=== PATIENT | female | born 2000 | race Caucasian/White ===

== ENCOUNTER 2023-08-27 18:12 | Outpatient (CLI) | payer OTHER | END 2023-08-27 18:13 | disposition home or self-care (01) | LOC: LAB.N 18:12 | PROVIDERS: ATTEND Obstetrics & Gynecology | DX: Z34.90 Encounter for supervision of normal pregnancy, unspecified, unspecified trimester (principal) | CPT/HCPCS: 87086 ==

== ENCOUNTER 2023-09-01 14:46 | Outpatient (CLI) | payer OTHER ==
--- NOTE | 2023-09-02 08:45 | Ultrasound Report ---
PROCEDURE: OB First Trimester INDICATIONS: POSITIVE TEST OUTSIDE/PRIOR DATING DATA: Last menstrual period (LMP): 06/25/2023. LMP-based estimated date of delivery (CANDY): 03/31/2024. First dating scan (date and location): 09/01/2023. Estimated date of delivery (CANDY) from first dating scan: 04/02/2024. TECHNIQUE: Real-time scanning was performed of the fetus and maternal pelvic organs, with image documentation. COMPARISON: None. FINDINGS: Intrauterine gestational sac present. Embryo: Aten-rump length of 2.6 cm corresponding to a gestational age of 9 weeks 3 days Heart rate: 171 bpm. Other: No perigestational fluid collection. Measurement variability in dating: +/- 4 weeks by LMP, +/- 7 days by mean sac diameter (use before 6 weeks gestation if crown-rump length not able to be measured), +/- 5 days by crown-rump length (6-12 weeks gestation). Maternal organs: Ovaries appear within normal limits. IMPRESSION: Single living intrauterine with gestational age of 9 weeks 3 days by crown-rump length halley esponding to an ultrasound CANDY of 04/02/2024, concordant with clinical dates. Reviewed by: Enrique Vasquez MD on 09/02/2023 8:44 AM PDT Approved by: Enrique Vasquez MD on 09/02/2023 8:44 AM PDT Station ID: [id number]
== END 2023-09-01 14:47 | disposition home or self-care (01) ==
LOC: DI 14:46
PROVIDERS: ATTEND Obstetrics & Gynecology
DX: Z34.91 Encounter for supervision of normal pregnancy, unspecified, first trimester (principal)

== ENCOUNTER 2023-09-17 08:00 | Outpatient (CLI) | payer OTHER ==
[2023-09-17 19:53] LABS: CHLAMYDIA TRACHOMATIS DNA NEGATIVE (NEGATIVE); NEISSERIA GONORRHOEAE DNA NEGATIVE (NEGATIVE); TRICHOMONAS VAGINALIS DNA NEGATIVE (NEGATIVE)
== END 2023-09-17 23:59 | disposition home or self-care (01) ==
LOC: LAB.WC 08:00
PROVIDERS: ATTEND Obstetrics & Gynecology
DX: Z11.3 Encounter for screening for infections with a predominantly sexual mode of transmission (principal)
CPT/HCPCS: 87491; 87591; 87661

== ENCOUNTER 2023-09-17 10:44 | Outpatient (CLI) | payer OTHER ==
[2023-09-17 11:18] LABS: BASOPHILS # (AUTO) 0.1 10^3/uL (0.0-0.1); BASOPHILS % (AUTO) 0.5 %; EOSINOPHILS # (AUTO) 0.1 10^3/uL (0.0-0.7); EOSINOPHILS % (AUTO) 0.5 %; HCT - HEMATOCRIT 41.6 % (37.0-47.0); HGB - HEMOGLOBIN 14.5 g/dL (12.0-16.0); LYMPHOCYTES # (AUTO) 1.4 10^3/uL (1.5-3.5); LYMPHOCYTES % (AUTO) 14.2 %; MEAN CORPUSCULAR HEMOGLOBIN 30.8 pg (27.0-31.0); MEAN CORPUSCULAR HGB CONC 34.9 g/dL (32.0-36.0); MEAN CORPUSCULAR VOLUME 88.3 fL (81.0-99.0); MONOCYTES # (AUTO) 0.3 10^3/uL (0.0-1.0); NEUTROPHILS # (AUTO) 7.9 10^3/uL (1.5-6.6); NEUTROPHILS % (AUTO) 81.5 %; PLT - PLATELET COUNT 176 10^3/uL (130-450); RED BLOOD COUNT 4.71 10^6/uL (4.20-5.40); RED CELL DISTRIBUTION WIDTH 12.3 % (12.0-15.0); WHITE BLOOD COUNT 9.7 x10^3/uL (4.8-10.8)
[2023-09-17 11:32] LABS: CREATININE 0.5 mg/dL (0.6-1.3)
[2023-09-17 11:46] LABS: THYROID STIMULATING HORMONE 0.34 uIU/mL (0.34-5.60)
[2023-09-18 06:10] LABS: RPR Non Reactive (Non Reactive)
[2023-09-18 07:10] LABS: HBsAG SCREEN Negative (Negative)
[2023-09-18 11:10] LABS: VARICELLA-ZOSTER AB IGG 708 index (Immune >165)
[2023-09-19 01:08] LABS: HCV AB Non Reactive (Non Reactive); HIV SCREEN 4TH GENERATION Non Reactive (Non Reactive)
== END 2023-09-17 10:45 | disposition home or self-care (01) ==
LOC: LAB 10:44
PROVIDERS: ATTEND Obstetrics & Gynecology
DX: O99.210 Obesity complicating pregnancy, unspecified trimester (principal); E66.9 Obesity, unspecified
CPT/HCPCS: 36415; 82565; 82570; 84156; 84443; 84450; 85025; 86592; 86762; 86787; 86803; 86850; 86900; 86901; 87340; 87389; 87491; 87591; 87661

== ENCOUNTER 2023-11-06 14:18 | Outpatient (CLI) | payer OTHER ==
[2023-11-06 14:38] LABS: BILIRUBIN,URINE NEGATIVE (NEGATIVE); GLUCOSE, URINE (UA) NEGATIVE (NEGATIVE); KETONES,URINE (UA) NEGATIVE (NEGATIVE); LEUKOCYTE ESTERASE, URINE TRACE (NEGATIVE); NITRITE,URINE NEGATIVE (NEGATIVE); OCCULT BLOOD,URINE NEGATIVE (NEGATIVE); PH,URINE 6.5 PH (5.0-7.5); PROTEIN,URINE TRACE mg/dL (NEGATIVE); UROBILINOGEN,URINE 0.2 (NORMAL) E.U./dL (NORMAL)
[2023-11-06 14:44] LABS: BACTERIA,URINE Moderate /HPF (None Seen); CLARITY,URINE SL. CLOUDY (CLEAR); MUCUS,URINE Marked Strands; RBC,URINE 0-5 /HPF (0-5); SQUAMOUS EPITHELIAL CELL,UR MANY Squamous (<= Few); WBC,URINE 0-3 /HPF (0-5)
[2023-11-06 14:48] LABS: CREATININE,URINE 248.1 mg/dL; PROTEIN/CREATININE RATIO,URINE 0.1 (<=0.2)
[2023-11-06 14:54] LABS: ALBUMIN 4.1 g/dL (3.2-5.5); ALBUMIN/GLOBULIN RATIO 1.6 (1.0-2.2); BILIRUBIN,TOTAL 0.4 mg/dL (0.2-1.0); CALCIUM 9.4 mg/dL (8.5-10.3); CREATININE 0.5 mg/dL (0.6-1.3); POTASSIUM 3.7 mmol/L (3.5-4.5); TOTAL PROTEIN 6.7 g/dL (6.4-8.9)
[2023-11-06 15:09] LABS: THYROID STIMULATING HORMONE 0.41 uIU/mL (0.34-5.60)
[2023-11-07 06:46] LABS: ESTIMATED AVERAGE GLUCOSE 94 mg/dL (70-100); HEMOGLOBIN A1c% 4.9 % (4.27-6.07)
== END 2023-11-06 14:19 | disposition home or self-care (01) ==
LOC: LAB 14:18
PROVIDERS: ATTEND Nurse Practitioner
DX: R42 Dizziness and giddiness (principal)
CPT/HCPCS: 36415; 80053; 81001; 82570; 83036; 84156; 84443; 87086

== ENCOUNTER 2023-11-12 12:03 | Outpatient (CLI) | payer OTHER ==
[2023-11-18 10:07] LABS: AFP MOM See interpretation. (.); AFP VALUE 34.3 ng/mL (.); GESTAT. AGE METHOD EDD (.); MATERNAL AGE AT EDD 25.4 yr (.); MULTIPLE GESTATION No (.); OPEN SPINA BIFIDA RISK 1 IN See interpretation. (.); RACE Caucasian (.); RESULTS Report (.); TEST RESULTS See interpretation. (.)
== END 2023-11-12 12:04 | disposition home or self-care (01) ==
LOC: LAB.N 12:03
PROVIDERS: ATTEND Obstetrics & Gynecology
DX: Z34.90 Encounter for supervision of normal pregnancy, unspecified, unspecified trimester (principal)
CPT/HCPCS: 36415; 82105

== ENCOUNTER 2023-11-13 16:08 | Outpatient (CLI) | payer OTHER ==
--- NOTE | 2023-11-14 14:45 | Ultrasound Report ---
PROCEDURE: OB Detailed Eval INDICATIONS: SUPERVISION OF OUTSIDE/PRIOR DATING DATA: Last menstrual period (LMP): 06/25/2023. LMP-based estimated date of delivery (CANDY): 03/31/2024. First dating scan (date and location): 04/02/2023. Estimated date of delivery (CANDY) from first dating scan: 08/28/2023. The below data below was generated using the working CANDY of 04/02/2023 TECHNIQUE: Ultrasound of the gravid uterus was performed and recorded. COMPARISON: 09/01/2023 FINDINGS: General: A single live intrauterine gestation is present. Presentation: 11/13/2023 Placenta: Placental position is vertex without previa. Amniotic fluid index: 19.9 cm, 9.9 percentile for gestational age. heart rate: 145 beats per minute. Maternal cervical canal: 3.8 cm long; normal length is 2.5 cm or more. biometrics: Biparietal diameter: 4.4 cm, 19 week 3 day, 23 percentile Head circumference: 17.5 cm, 20 week 0 day, 35 percentile Abdominal circumference: 15.3 cm, 20 week 4 day, 57 percentile Femur length: 3.2 cm, 20 week 0 day, 38 percentile Estimated gestational age by working dates: 20 week 1 day Composite gestational age by current ultrasound: 19 week 6 day Estimated weight and percentile: 340 g, 50.2 percentile Measurement variability in biometric dating: +/- 10 days from 12-20 weeks gestation, +/- 2 weeks from 20-30 weeks gestation, +/- 3 weeks at 30 weeks gestation or more. Anatomic survey: Neuro: Ventricles are non-dilated at less than 10 mm. Cisterna magna is normal at 3-11 mm. Cerebel lum is normal in size and morphology. Nuchal skin fold: Normal at less than 6 mm between 14-20 weeks gestational age. Face: Not well seen Spine: Not well seen Heart: 4 chamber view within normal limits. Ventricular outflow tracts not well seen Diaphragm: Diaphragm is intact. Stomach: Left-sided stomach is present. Kidneys: No hydronephrosis. Normal is less than 5 mm in 2nd trimester, less than 7 mm in 3rd trimester. Cord: 3-vessel cord has orthotopic insertion. Bladder: Normal in size. Extremities: All 4 extremities identified. Other: Not applicable. IMPRESSION: Single live intrauterine consistent with 19 week 6 day gestation by current ultrasound Facial profile, spine, and cardiac outflow tracts not well visualized due to position Reviewed by: Abdelrahman Suarez MD on 11/14/2023 1:44 PM [facility] Approved by: Abdelrahman Suarez MD on 11/14/2023 1:44 PM [facility] Station ID: [id number]
== END 2023-11-13 16:09 | disposition home or self-care (01) ==
LOC: DI 16:08
PROVIDERS: ATTEND Obstetrics & Gynecology
DX: Z34.92 Encounter for supervision of normal pregnancy, unspecified, second trimester (principal)

== ENCOUNTER 2023-11-25 17:16 | Outpatient (CLI) | payer OTHER ==
--- NOTE | 2023-11-26 10:25 | Ultrasound Report ---
PROCEDURE: OB Follow up INDICATIONS: SUPERVISION OF OUTSIDE/PRIOR DATING DATA: Last menstrual period (LMP): 06/25/2023. LMP-based estimated date of delivery (CANDY): 03/31/2024. First dating scan (date and location): 09/01/2023. Estimated date of delivery (CANDY) from first dating scan: 04/02/2024. The below data below was generated using the clinical CANDY of 03/31/2024 TECHNIQUE: Real-time scanning was performed of the fetus, with image documentation. Endovaginal scanning: Not performed. COMPARISON: None. FINDINGS: General: A single living intrauterine gestation is present. Presentation: Vertex Placenta: Placental position is anterior, without previa. Amniotic fluid index: 11.7 cm, within normal limits for gestational age. heart rate: 135 beats per minute. Maternal cervical is closed. Other: profile is suboptimally visualized but appears grossly within normal limits. The spine, cardiac outflow tracts, stomach, kidneys and urinary bladder/pelvis are normal. IMPRESSION: Single living intrauterine at 21 weeks 6 days, CANDY of 03/31/2024. profile, spine and cardiac outflow tracts are within normal limits. Reviewed by: Da Greenwood MD on 11/26/2023 10:24 AM PST Approved by: Da Greenwood MD on 11/26/2023 10:24 AM PST Station ID: [id number]
== END 2023-11-25 17:17 | disposition home or self-care (01) ==
LOC: DI 17:16
PROVIDERS: ATTEND Obstetrics & Gynecology
DX: O09.92 Supervision of high risk pregnancy, unspecified, second trimester (principal); Z3A.21 21 weeks gestation of pregnancy

== ENCOUNTER 2024-01-20 19:12 | Outpatient (CLI) | payer OTHER ==
--- NOTE | 2024-01-21 09:12 | Ultrasound Report ---
PROCEDURE: OB Follow up INDICATIONS: LOW WEIGTH GAIN OUTSIDE/PRIOR DATING DATA: Last menstrual period (LMP): 06/25/2023. LMP-based estimated date of delivery (CANDY): 03/31/2024 (working CANDY). First dating scan (date and location): 09/01/2020. Estimated date of delivery (CANDY) from first dating scan: 04/02/2024. TECHNIQUE: Real-time scanning was performed of the fetus, with image documentation and biometric measurements. COMPARISON: 11/25/23, 11/13/2023, 09/01/2023 FINDINGS: General: A single living intrauterine gestation is present. Presentation: Vertex Placenta: Placental position is anterior, without previa. Amniotic fluid index: 10.7 cm, within normal limits for gestational age. heart rate: 131 beats per minute. biometrics: Biparietal diameter: 7.46 cm, 29 weeks and 6 days, 39.7 percentile Head circumference: 28.4 cm, 31 weeks and 1 day, 53.4 percentile Abdominal circumference: 25.08 cm, 29 weeks and 2 days, 27.7 percentile Femur length: 5.63 cm, 29 weeks and 4 days, 27.5 percentile Estimated gestational age from initial scan: 29 weeks and 6 days Composite gestational age from present scan: 30 weeks and 6 days Estimated weight and percentile: 1424 g, 28.8 percentile Measurement variability in biometric dating: +/- 10 days from 12-20 weeks gestation, +/- 2 weeks from 20-30 weeks gestation, +/- 3 weeks at 30 weeks gestation or more. This was a technically difficult exam due to position. IMPRESSION: Living intrauterine gestation. Normal FADI. EFW at the 28.8 percentile, expected interval growth. Technically difficult exam due to position. Reviewed by: Onel Barnes MD on 01/21/2024 9:11 AM PST Approved by: Onel Barnes MD on 01/21/2024 9:11 AM PST Station ID: [id number]
== END 2024-01-20 19:13 | disposition home or self-care (01) ==
LOC: DI 19:12
PROVIDERS: ATTEND Nurse Practitioner
DX: O09.93 Supervision of high risk pregnancy, unspecified, third trimester (principal); O21.9 Vomiting of pregnancy, unspecified; O99.213 Obesity complicating pregnancy, third trimester; O26.13 Low weight gain in pregnancy, third trimester; Z3A.30 30 weeks gestation of pregnancy

== ENCOUNTER 2024-01-21 11:07 | Outpatient (CLI) | payer OTHER ==
[2024-01-21 17:43] LABS: HCT - HEMATOCRIT 38.7 % (37.0-47.0); HGB - HEMOGLOBIN 12.6 g/dL (12.0-16.0); MEAN CORPUSCULAR HEMOGLOBIN 30.7 pg (27.0-31.0); MEAN CORPUSCULAR HGB CONC 32.6 g/dL (32.0-36.0); MEAN CORPUSCULAR VOLUME 94.2 fL (81.0-99.0); MEAN PLATELET VOLUME 13.3 fL (7.9-10.8); RED BLOOD COUNT 4.11 10^6/uL (4.20-5.40); RED CELL DISTRIBUTION WIDTH 13.4 % (12.0-15.0); WHITE BLOOD COUNT 9.9 x10^3/uL (4.8-10.8)
== END 2024-01-21 11:08 | disposition home or self-care (01) ==
LOC: LAB.N 11:07
PROVIDERS: ATTEND Obstetrics & Gynecology
DX: O09.92 Supervision of high risk pregnancy, unspecified, second trimester (principal); Z36.89 Encounter for other specified antenatal screening
CPT/HCPCS: 36415; 85027

== ENCOUNTER 2024-02-04 09:58 | Observation (INO) | payer OTHER ==
[2024-02-04] MEDS: ONDANSETRON 4 MG/2 ML VIAL IVP PRN (10:47)
[2024-02-04 11:03] LABS: ALBUMIN 3.7 g/dL (3.2-5.5); ALBUMIN/GLOBULIN RATIO 1.3 (1.0-2.2); BILIRUBIN,TOTAL 0.4 mg/dL (0.2-1.0); CALCIUM 9.2 mg/dL (8.5-10.3); CREATININE 0.5 mg/dL (0.6-1.3); MAGNESIUM 1.7 mg/dL (1.7-2.3); POTASSIUM 3.6 mmol/L (3.5-4.5); TOTAL PROTEIN 6.5 g/dL (6.4-8.9)
[2024-02-04] MEDS: MULTIVITAMIN 10 ML, THIAMINE INJ 100 MG, POTASSIUM CHLORIDE INJ 20 MEQ, FOLIC ACID INJ ... IV SCH (11:10)
[2024-02-04] MEDS: SCOPOLAMINE PATCH TOP PRN (15:21)
[2024-02-04 15:29] VITALS: BP 120/67; O2SAT 99
--- NOTE | 2024-02-04 22:04 | HISTORY & PHYSICAL EXAMINATION ---
Admit History - Visit Reason Visit Reason: Other (hyperemesis. exhausted. not able to keep down any food for days. just back from family trip to [place].) - Care: positive: [facility] - Other Maternal History Other Maternal History: really feeling miserable. has tried many medications and none are working for her to help her eat. Allergies Reviewed: Done * VICODIN (Moderate) Medications: Meds Reviewed: Done Pepcid AC 20 mg tablet (famotidine) Take 1 tablet by mouth twice a day * Electric Breast Pump Use 1 device as directed as directed USE TO EXPRESS MILK ACCORDING TO BABY'S NEEDS Z39.1 CANDY 03/31/2024 Lancets, Super Thin (lancets) Use 1 lancet as directed four times a day * Compazine 10 mg tablet (prochlorperazine maleate) Take 1 tablet by mouth every six to eight hours as needed for nausea Unisom (doxylamine) 25 mg tablet (doxylamine succinate) takes 1/2 tab prn nausea/sleep * PreNata 29 mg iron- 1 mg tablet,chewable ( [id number]) albuterol sulfate 90 mcg/actuation HFA aerosol inhaler (albuterol sulfate) use 2 puffs as needed for wheezing up to qid * pyridoxine (vitamin B6) 25 mg tablet (pyridoxine (vitamin b6)) tid prn nausea Ecotrin Low Strength 81 mg tablet,delayed release (DR/EC) (aspirin) 1 tablet by mouth once a day starting 12 wks for remainder of . Problems: Low weight gain in , unspecified trimester (ICD-646.83) (KCB07-R87.10) screening,other specified (ICD-V28.8) (SXJ77-D12.89) Near syncope (ICD-780.2) (HTX17-S23) Dizziness (ICD-780.4) (HDR46-U27) Supervision high risk , second trimester (ICD-V23.9) (FTF77-R40.92) Nausea and vomiting in (ICD-643.93) (AMX73-H03.9) Obesity, BMI 35-39.9, adult (ICD-278.00) (XBH08-I12.9) Past Medical History: Fibromyalgia Depression/anxiety hyperemesis with first . covid x 3 infections. with 1st vaccine she had left side of face not moving for a month. asthma mostly with URI or exercise. Past Surgical History: Tonsellectomy Knee surgery Vital Signs: Patient Profile: 23 Years Old Female Height: 71 inches Weight: 234.7 pounds BMI: 32.85 BP sittin / 68 Vitals Entered By: Mary Mendoza LPN (February 04, 2024 9:20 AM) Flowsheet View for Follow-up Visit Estimated weeks of gestation: 32 0/7 Weight: 234.7 Blood pressure: 122 / 68 Nausea/vomiting: vomtis any time she eats Vaginal bleeding: no Vaginal discharge: no activity: yes Labor symptoms: few ctx Comment: promethazine every day. metoclopramide with every meal 30 min before. heartburn medicine working well. just back from [place] vomiting every day there. really exhausted and miserable. feels like she is dehydrated and needs IVF. agrees to go to L&D for a liter iv. LMP: 06/25/23 CANDY by LMP: 03/31/24 US: 09/01/23 9+3 weeks CW LMP Final CANDY: 03/31/2024 FOB: Frederick. same as 1st 1. Hx preeclampsia -Compliant with aspirin BMI > 30 -counseled on weight Hyperemesis Multiple medications: Currently metoclopramide, b6 TID, unisom PM,added oral pr ochlorperazine. Has tried most options. . -profiling normal. Insufficient weight gain -EFW 01/20/2024: 1424 g, 29th percentile. Pre- Weight:258.4 BMI: 36.17 Blood type: O+ Antibody: negative CBC: PLT-176 HCT-41.6 HGB-14.5 RUB: immune VZV: immune HBsAg: negative HepC: negative RPR/AB-EIA: non-reactive HIV: negative PAP: Normal GC/CT: with pap 09/17/23- Negative HSV:Denies in self and partner Genetic testing: GaniTi 21 negative 11/12/2023 AFP negative Covid: declines; recvd Moderna in past Flu: declines FAS: 10/15 suboptimal visualization Placenta: vertex without previa Cord: 3VC FADI: normal EFW: 340g 50th %ile 1/2 follow up u/s profile suboptimal but grossly normal; all other structures normal. Declines repeat after discussion possibility of cleft lip/palate. 50gm OGCT: Profiling normal TDAP: 01/07/24 Breast Pump: 01/07/2024 3rd trimester H/H PLT GBS: Delivery plan: Contraception:desires sterilization Medications: Removed medication of True Metrix Glucose Meter (blood-glucose meter) Use 1 unit as directed four times a day to check blood sugar; Route: DIRECTED; Stop Date: 02/04/2024 - Signed Removed medication of True Metrix Glucose Test Strip strip (blood sugar diagnostic) Use 1 strip via meter four times a day ; Route: VIA METER; Stop Date: 02/04/2024 - Signed P: 1 T: 1 A: 0 L: 1 LMP: 06/25/2023 EDC: 03/31/2024 Height: 71 (01/21/2024 9:21:53 AM) Weight: 234.7 Weight (pre-): 258.4 (08/20/2023 1:18:54 PM) Gonnorhea: Neg (09/17/2023 2:26:21 PM) Chlamydia: Neg (09/17/2023 2:26:16 PM) Blood Type: O+ (09/17/2023 2:57:53 PM) Last Antibody Screen: negative (09/17/2023 2:57:59 PM) Is pt sexually active? yes Gonnorrhea: Neg (09/17/2023 2:26:21 PM) Chlamydia: Neg (09/17/2023 2:26:16 PM) HIV: negative (09/17/2023 2:58:33 PM) RPR: Non Reactive (09/17/2023 11:12:00 AM) Last Pap: Normal, Satisfactory (09/17/2023 2:26:02 PM) Next pap due: 09/17/2026 (09/24/2023 2:21:31 PM) Medications: Removed medication of True Metrix Glucose Meter (blood-glucose meter) Use 1 unit as directed four times a day to check blood sugar; Route: DIRECTED; Stop Date: 02/04/2024 - Signed Removed medication of True Metrix Glucose Test Strip strip (blood sugar diagnostic) Use 1 strip via meter four times a day ; Route: VIA METER; Stop Date: 02/04/2024 - Signed - HPI Vital Signs Temperature 97.9 F 02/04/24 10:24 Heart Rate 71 02/04/24 10:24 Respiratory Rate 16 02/04/24 10:24 Blood Pressure 111/65 02/04/24 10:24 O2 Saturation 100 02/04/24 10:24 Temperature 98.4 F 02/04/24 15:24 Heart Rate 63 02/04/24 15:24 Respiratory Rate 16 02/04/24 15:24 Blood Pressure 120/67 02/04/24 15:24 O2 Saturation 99 02/04/24 15:24 If not protocol: Oxygen Flow, liters/minute Meds/Allgy - Home Medications Home Medications: Ambulatory Orders Medication Instructions Recorded Confirmed Famotidine [Acid Sewing Machine Tester] 20 mg PO BID 02/04/24 02/04/24 Review of Systems - Constitutional Constitutional: reports: Fatigue, Poor appetite. denies: Fever - Cardiovascular Cariovascular: reports: Lightheadedness - Gastrointestinal Gastrointestinal: reports: Nausea, Vomiting, Reflux/heartburn (better with pepcid). denies: Jun blood emesis, Coffee grounds emesis Physical - Abdominal Exam Vital Signs: Temp Pulse Resp BP Pulse Ox O2 Flow Rate 98.4 F 63 16 120/67 99 02/04/24 15:24 02/04/24 15:24 02/04/24 15:24 02/04/24 15:24 02/04/24 15:24 Contraction Frequency (min/apart): none - Monitoring Heart Rate Baseline: 134 Strip Review: positive: Category I - Presentation Presentation: positive: Vertex - Vaginal Exam Membranes: positive: Membranes intact - Speculum Exam Speculum Exam Performed: positive: No - Other Notes Labor Progress Note/Additional Text: not in labor Plan for Labor - Plan For Labor I expect patient to be DC'd or transferred within 96 hours.: Yes Plan for Labor: admit for hyperemesis. will hydrate wtih a banana bag. try scope patch. let her rest quietly for a bit and see if she feels better. labs done and normal.
--- NOTE | 2024-02-04 22:14 | DISCHARGE SUMMARY ---
Discharge Summary Admit Date: 02/04/24 Discharge Date: 02/04/24 Discharging Provider: Pat Michaels MD Code Status: Attempt Resuscitation Condition at Discharge: Good Discharge Disposition: 01 Home, Self Care - DIAGNOSES Admission Diagnoses: hyperemesis. iv hydration Discharge Diagnoses with Status of Each Condition: still with some nausea but feels better with liter of fluid. - HPI History of Present Illness: really miserable and ready for some iv fluids. no meds she has at home are really working. - HOSPITAL COURSE Hospital Course: 1 liter iv fluid with vitamins given. IV zofran. placed a scope patch. NST reactive. discharged home after the fluid ran in. - MEDICATIONS Home Medications: Ambulatory Orders Medication Instructions Recorded Confirmed Famotidine [Acid Tc Operator] 20 mg PO BID 02/04/24 02/04/24 - PHYSICAL EXAM AT DISCHARGE General Appearance: positive: No acute distress - LABS Result Diagrams: 02/04/24 10:18 - TIME SPENT Time Spent in Discharge (Minutes): 10
== END 2024-02-04 15:57 | disposition home or self-care (01) ==
LOC: WFO 09:58 → FBP 09:58 → WFO 10:18
PROVIDERS: ADMIT Obstetrics & Gynecology; ATTEND Obstetrics & Gynecology
DX: O21.2 Late vomiting of pregnancy (principal); Z3A.32 32 weeks gestation of pregnancy; O99.213 Obesity complicating pregnancy, third trimester; O26.13 Low weight gain in pregnancy, third trimester; O99.613 Diseases of the digestive system complicating pregnancy, third trimester; K21.9 Gastro-esophageal reflux disease without esophagitis
CPT/HCPCS: 36415; 80053; 83735; 96374; 96375; G0378; J3411; J3490

== ENCOUNTER 2024-03-02 19:47 | Outpatient (CLI) | payer OTHER ==
--- NOTE | 2024-03-03 09:47 | Ultrasound Report ---
PROCEDURE: OB Follow up INDICATIONS: LOW WEIGHT GAIN OUTSIDE/PRIOR DATING DATA: Last menstrual period (LMP): 06/25/2023. LMP-based estimated date of delivery (CANDY): 03/31/2024. First dating scan (date and location): 09/01/2023. Estimated date of delivery (CANDY) from first dating scan: 04/02/2024. The below data below was generated using the clinical CANDY of 03/31/2024 TECHNIQUE: Real-time scanning was performed of the fetus, with image documentation and biometric measurements. Endovaginal scanning: Not performed. COMPARISON: OB ultrasound 01/20/2024 FINDINGS: General: A single living intrauterine gestation is present. Presentation: Vertex Placenta: Placental position is anterior, without previa. Amniotic fluid index: 12.4 cm, within normal limits for gestational age. heart rate: 138 beats per minute. Maternal cervical canal: Not imaged. biometrics: Biparietal diameter: 8.8 cm, 35 weeks 5 days, 54th percentile Head circumference: 33.5 cm, 38 weeks 2 days, 79th percentile Abdominal circumference: 30.6 cm, 34 weeks 4 days, 22nd percentile Femur length: 6.7 cm, 34 weeks 4 days, 16th percentile Estimated gestational age from initial scan: 35 weeks 6 days Composite gestational age from present scan: 35 weeks 6 days Estimated weight and percentile: 2583 g, 29th percentile Measurement variability in biometric dating: +/- 10 days from 12-20 weeks gestation, +/- 2 weeks from 20-30 weeks gestation, +/- 3 weeks at 30 weeks gestation or more. Other: Not applicable. IMPRESSION: 1.Single live intrauterine at 35 weeks 6 days gestation. 2.Appropriate interval growth. Estimated weight at the 29th percentile for gestational age. 3.Amniotic fluid index is normal at 12.4 cm. Reviewed by: Enrique Monge MD on 03/03/2024 9:46 AM PDT Approved by: Enrique Monge MD on 03/03/2024 9:46 AM PDT Station ID: [id number]
== END 2024-03-02 19:48 | disposition home or self-care (01) ==
LOC: DI 19:47
PROVIDERS: ATTEND Nurse Practitioner
DX: O26.13 Low weight gain in pregnancy, third trimester (principal); Z3A.35 35 weeks gestation of pregnancy

== ENCOUNTER 2024-03-03 08:00 | Outpatient (CLI) | payer OTHER | END 2024-03-03 23:59 | disposition home or self-care (01) | LOC: LAB.WC 08:00 | PROVIDERS: ATTEND Obstetrics & Gynecology | DX: Z36.85 Encounter for antenatal screening for Streptococcus B (principal) | CPT/HCPCS: 87081; 87797 ==

== ENCOUNTER 2024-03-24 08:22 | Outpatient (CLI) | payer OTHER | END 2024-03-24 08:23 | disposition home or self-care (01) | LOC: WFO 08:22 | PROVIDERS: ATTEND Obstetrics & Gynecology | DX: Z53.9 Procedure and treatment not carried out, unspecified reason (principal) ==

== ENCOUNTER 2024-03-24 09:02 | Inpatient (IN) | payer OTHER ==
[2024-03-24] MEDS ORDERED: CALCIUM CARBONATE CHEW 500 MG TABLET PO PRN (09:10)
[2024-03-24] MEDS ORDERED: METHYLERGONOVINE 0.2 MG/ML VIAL IM PRN (09:10)
[2024-03-24] MEDS ORDERED: lidocaine 1% 20 ML MDV ID PRN (09:10)
[2024-03-24] MEDS ORDERED: TRANEXAMIC ACID IN NACL 1,000 MG/100 ML BAG IV PRN (09:10)
[2024-03-24] MEDS ORDERED: ONDANSETRON 4 MG/2 ML VIAL IVP PRN (09:10)
[2024-03-24] MEDS ORDERED: CARBOPROST TROMETHAMINE 250 MCG/ML VIAL IM PRN (09:10)
[2024-03-24] MEDS ORDERED: fentaNYL 100 MCG/2 ML VIAL IVP PRN (09:10)
[2024-03-24] MEDS ORDERED: miSOPROStoL 200 MCG TABLET BC PRN (09:10)
[2024-03-24] MEDS ORDERED: TERBUTALINE 1 MG/ML VIAL SUBQ PRN (09:10)
[2024-03-24] MEDS ORDERED: NIFEdipine 10 MG CAPSULE PO PRN (09:10)
[2024-03-24] MEDS ORDERED: LABETALOL 20 MG/4 ML SYRINGE IVP PRN ×3 (09:10)
[2024-03-24] MEDS ORDERED: SODIUM CHLORIDE FLUSH 0.9% 10 ML SYRINGE IVP PRN (09:10)
[2024-03-24] MEDS ORDERED: miSOPROStoL 200 MCG TABLET PR PRN (09:10)
[2024-03-24] MEDS ORDERED: hydrALAZINE INJ 20 MG/ML VIAL IVP PRN ×2 (09:10)
[2024-03-24] MEDS ORDERED: diphenhydrAMINE INJ 50 MG/ML VIAL IVP PRN (09:10)
[2024-03-24] MEDS ORDERED: METOCLOPRAMIDE 10 MG/2 ML VIAL IVP PRN (09:10)
[2024-03-24] MEDS ORDERED: OXYTOCIN 10 UNIT/ML VIAL IM PRN (09:10)
[2024-03-24] MEDS ORDERED: SODIUM CHLORIDE FLUSH 0.9% 10 ML SYRINGE IVP SCH (10:00)
[2024-03-24] MEDS: miSOPROStoL 100 MCG TABLET VG SCH (11:09)
--- NOTE | 2024-03-24 11:09 | ANESTHESIA ---
Pre-Anesthesia VS, & Labs - Diagnosis Induction of labor - Procedure vaginal delivery Vital Signs: Temp Pulse Resp BP Pulse Ox O2 Flow Rate 98.2 C H 82 18 118/70 03/24/24 09:07 03/24/24 09:07 03/24/24 09:07 03/24/24 09:07 Height: 5 ft 11 in Weight (kg): 105.233 kg Body Mass Index: 32.3 BMI Classification: Obese - NPO Last Fluid Intake: clear liquids - Is Patient ?: Yes Home Medications and Allergies Active Medications Acetaminophen (Acetaminophen 500 Mg Tablet) 1,000 mg PO Q8HR PRN PRN Reason: Mild Pain or Fever>38C(100.4F) Calcium Carbonate/Glycine (Calcium Carbonate Chew 500 Mg Tablet) 1,000 mg PO Q6HR PRN PRN Reason: Heartburn Carboprost Tromethamine (Carboprost Tromethamine 250 Mcg/Ml Vial) 250 mcg IM .ONCE PRN PRN Reason: Hemorrhage Diphenhydramine HCl (Diphenhydramine Inj 50 Mg/Ml Vial) 25 mg IVP Q6H PRN PRN Reason: Allergy Symptoms Famotidine (Famotidine 20 Mg Tablet) 20 mg PO BID PIETER Fentanyl (Fentanyl 100 Mcg/2 Ml Vial) 50 mcg IVP Q1H PRN PRN Reason: Severe Pain (score 7-10) Hydralazine HCl (Hydralazine Inj 20 Mg/Ml Vial) 5 - 10 mg IVP Q20M PRN; Protocol PRN Reason: SBP> or= 160 OR DBP> or= 110 Hydralazine HCl (Hydralazine Inj 20 Mg/Ml Vial) 10 mg IVP .ONCE PRN; Protocol PRN Reason: SBP> or= 160 OR DBP> or= 110 Lactated Ringer's (Lr) 500 mls @ 999 mls/hr IV PRN PRN PRN Reason: Abdominal Pain Oxytocin/Sodium Chloride (Pitocin/Sodium Chloride) 500 mls @ 999 mls/hr IV PRN PRN; Protocol PRN Reason: POST- HEMORR PREVENTION Tranexamic Acid (Tranexamic 1,000 Mg/100ml-Nacl) 1,000 mg in 100 mls @ 600 mls/hr IV Q30M PRN PRN Reason: EBL >1200mL and within 3hr Labetalol HCl (Labetalol 20 Mg/4 Ml Syringe) 20 - 80 mg IVP Q10M PRN; Protocol PRN Reason: SBP> or= 160 OR DBP> or= 110 Labetalol HCl (Labetalol 20 Mg/4 Ml Syringe) 20 mg IVP .ONCE PRN; Protocol PRN Reason: SBP> or= 160 OR DBP> or= 110 Labetalol HCl (Labetalol 20 Mg/4 Ml Syringe) 20 - 40 mg IVP Q10M PRN; Protocol PRN Reason: SBP> or= 160 OR DBP> or= 110 Lidocaine HCl (Lidocaine 1% 20 Ml Mdv) 20 ml ID .ONCE PRN PRN Reason: PERINEAL REPAIR Stop: 03/27/24 09:10 Methylergonovine Maleate (Methylergonovine 0.2 Mg/Ml Vial) 0.2 mg IM .ONCE PRN PRN Reason: Hemorrhage Metoclopramide HCl (Metoclopramide 10 Mg/2 Ml Vial) 5 mg IVP Q6HR PRN PRN Reason: Nausea / Vomiting Misoprostol (Misoprostol 200 Mcg Tablet) 600 mcg BC .ONCE PRN PRN Reason: Hemorrhage Misoprostol (Misoprostol 200 Mcg Tablet) 800 mcg TN .ONCE PRN PRN Reason: Hemorrhage Misoprostol (Misoprostol 100 Mcg Tablet) 25 mcg VG Q4H PIETER Stop: 03/25/24 06:01 Nifedipine (Nifedipine 10 Mg Capsule) 10 - 20 mg PO Q20M PRN; Protocol PRN Reason: SBP> or= 160 OR DBP> or= 110 Ondansetron HCl (Ondansetron 4 Mg/2 Ml Vial) 4 mg IVP PRN PRN PRN Reason: Nausea / Vomiting Oxytocin (Oxytocin 10 Unit/Ml Vial) 10 unit IM .ONCE PRN PRN Reason: Step One if no IV access. Sodium Chloride (Sodium Chloride Flush 0.9% 10 Ml Syringe) 10 ml IVP PRN PRN PRN Reason: NEEDED PER PROVIDER ORDERS Sodium Chloride (Sodium Chloride Flush 0.9% 10 Ml Syringe) 10 ml IVP Q8H PIETER Terbutaline Sulfate (Terbutaline 1 Mg/Ml Vial) 0.25 mg SUBQ .ONCE PRN PRN Reason: Tachystole Famotidine [Acid Wide Area Network Administrator] 20 mg PO BID 02/04/24 Allergies/Adverse Reactions: Allergies Allergy/AdvReac Type Severity Reaction Status Date / Time acetaminophen [From Vicodin] AdvReac Nausea Verified 03/24/24 11:08 hydrocodone [From Vicodin] AdvReac Nausea Verified 03/24/24 11:08 Anes History & Medical History - Anesthetic History Anesthesia Complications: reports: No previous complications - Medical History Cardiovascular: reports: None Pulmonary: reports: Asthma Gastrointestinal: reports: None Urinary: reports: None Neuro: reports: None Musculoskeletal: reports: None Endocrine/Autoimmune: reports: None Blood Disorders: reports: None Skin: reports: None Smoking Status: Never smoker Psychosocial: reports: Depression, Anxiety History of Cancer?: No - Surgical History Eyes Ears Nose Throat (EENT): reports: Tonsil/Adenoidectomy Orthopedic: reports: Arthroscopic surgery - Obstetrical History : 2 Parity: 1 Events: reports: Other (Hyperemesis, History of hemorrhage with first ) Exam General: Alert Dental: WNL Mouth Openin Fingerbreadth Neck Mobility: Normal Mallampati classification: II Thyromental Distance: 4-6 cm Mental/Cognitive Status: Alert/Oriented X3, Normal for patient Plan Anesthesia Type: Epidural Consent for Procedure(s) Verified and Reviewed: Yes Code Status: Attempt Resuscitation ASA classification: 2-Mild systemic disease Is this case an emergency?: No
[2024-03-24 11:46] LABS: BASOPHILS % (AUTO) 0.3 %; EOSINOPHILS % (AUTO) 0.3 %; HCT - HEMATOCRIT 40.1 % (37.0-47.0); HGB - HEMOGLOBIN 13.3 g/dL (12.0-16.0); LYMPHOCYTES # (AUTO) 1.7 10^3/uL (1.5-3.5); MEAN CORPUSCULAR HEMOGLOBIN 29.6 pg (27.0-31.0); MEAN CORPUSCULAR HGB CONC 33.2 g/dL (32.0-36.0); MEAN CORPUSCULAR VOLUME 89.1 fL (81.0-99.0); MEAN PLATELET VOLUME 12.9 fL (7.9-10.8); MONOCYTES # (AUTO) 0.5 10^3/uL (0.0-1.0); MONOCYTES % (AUTO) 4.1 %; NEUTROPHILS # (AUTO) 9.7 10^3/uL (1.5-6.6); NEUTROPHILS % (AUTO) 80.7 %; PLT - PLATELET COUNT 161 10^3/uL (130-450); RED CELL DISTRIBUTION WIDTH 13.8 % (12.0-15.0)
--- NOTE | 2024-03-24 14:13 | PHARMACY PROGRESS NOTE ---
- Best Possible Medication History Admit Date and Time: 03/24/24 0910 Processed by: Pharmacy Medications reviewed in ED?: No Medication History completed: Yes Patient Interview: Pt unable to participate Secondary Source(s): Insurance records As the person ultimately responsible for medication therapy, providers are able to order a medication from an existing home medication list in [facility] via the "Reconcile Routine" prior to Confirmation of that medication by direct support specialist. Such practice is discouraged except when the physician, in their clinical judgment, deems that a medical need exists for a medication without regard to previous use.
[2024-03-24] MEDS ORDERED: AMPICILLIN 2 GM VIAL IV ONE (19:19)
[2024-03-24] MEDS: LACTATED RINGERS 1,000 ML IV PRN (19:28)
[2024-03-24] MEDS: AMPICILLIN 2 GM in SODIUM CHLORIDE 0.9% MINIBAG 100 ML IV SCH (19:33)
--- NOTE | 2024-03-24 20:50 | HISTORY & PHYSICAL EXAMINATION ---
Admit History - Visit Reason Visit Reason: Other (labor induction at term) - : 2 Parity: 1 Care: positive: [facility] Smoking Status: Never smoker - Mother's Labs GBS: positive: Group B Strep Positive - Other Maternal History Other Maternal History: HPI: here for induction of labor. last visit: Patient presents today for her f/u at 38+6wks. Still vomiting. Can't wait to be done. Profiling normal and not doing any longer. Induction tomorrow ...................................................................Mary Reji BRIAN March 23, 2024 8:47 AM. last ultrasound 03/02/24: Amniotic fluid index: 12.4 cm, within normal limits for gestational age. heart rate: 138 beats per minute. Maternal cervical canal: Not imaged. biometrics: Biparietal diameter: 8.8 cm, 35 weeks 5 days, 54th percentile Head circumference: 33.5 CM, 38 weeks 2 days, 791h percentile Abdominal circumference: 30.6 cm, 34 weeks 4 days, 22nd percentile Femur length: 6.7 cm, 34 weeks 4 days, 16th percentile Estimated gestational age from initial scan: 35 weeks 6 days Composite gestational age from present scan: 35 weeks 6 days Estimated weight and percentile: 2583 g, 29th percentile Measurement variability in biometric dating: +/- 10 days from 12-20 weeks gestation, +/- 2 weeks from 20-30 weeks gestation, +/- 3 weeks at 30 weeks gestation or more. Allergies: Allergies Reviewed: Done * VICODIN (Moderate) Medications: Meds Reviewed: Done Pepcid AC 20 mg tablet (famotidine) Take 1 tablet by mouth twice a day * Electric Breast Pump Use 1 device as directed as directed USE TO EXPRESS MILK ACCORDING TO BABY'S NEEDS Z39.1 CANDY 03/31/2024 Lancets, Super Thin (lancets) Use 1 lancet as directed four times a day * Compazine 10 mg tablet (prochlorperazine maleate) Take 1 tablet by mouth every six to eight hours as needed for nausea Unisom (doxylamine) 25 mg tablet (doxylamine succinate) takes 1/2 tab prn nausea/sleep * PreNata 29 mg iron- 1 mg tablet,chewable ( [id number]) albuterol sulfate 90 mcg/actuation HFA aerosol inhaler (albuterol sulfate) use 2 puffs as needed for wheezing up to qid * pyridoxine (vitamin B6) 25 mg tablet (pyridoxine (vitamin b6)) tid prn nausea Ecotrin Low Strength 81 mg tablet,delayed release (DR/EC) (aspirin) 1 tablet by mouth once a day starting 12 wks for remainder of . Problems: screening for streptococcus B (ICD-V28.6) (DQH70-F44.85) Supervision of other high risk , third trimester (ICD-V23.89) (ICD10- O09.893) Low weight gain in , unspecified trimester (ICD-646.83) (DZD83-N23.10) screening,other specified (ICD-V28.8) (FLQ18-R19.89) Near syncope (ICD-780.2) (OJB59-L38) Dizziness (ICD-780.4) (OSF50-Y72) Nausea and vomiting in (ICD-643.93) (XHG62-T08.9) Obesity, BMI 35-39.9, adult (ICD-278.00) (MCZ04-G30.9) Past Medical History: Fibromyalgia Depression/anxiety hyperemesis with first . covid x 3 infections. with 1st vaccine she had left side of face not moving for a month. asthma mostly with URI or exercise. Past Surgical History: Tonsellectomy Knee surgery Vital Signs: Patient Profile: 23 Years Old Female Height: 71 inches Weight: 232 pounds BMI: 32.47 BP sittin / 76 Vitals Entered By: Mary Mendoza LPN (March 23, 2024 8:53 AM) Meds Reviewed: Done Allergies Reviewed: Done Flowsheet View for Follow-up Visit Estimated weeks of gestation: 38 6/7 Weight: 232 Blood pressure: 102 / 76 FHR: + Vaginal bleeding: no Vaginal discharge: no activity: yes Labor symptoms: no position: vertex Taking vits? Y Smoking: n/a Next visit: 1 wk Comment: ready to be done. induction tomorrow. discussed. LMP: 06/25/23 CANDY by LMP: 03/31/24 US: 09/01/23 9+3 weeks CW LMP Final CANDY: 03/31/2024 FOB: [place]. same as 1st 1. Hx preeclampsia -Compliant with aspirin BMI > 30 -counseled on weight Hyperemesis Multiple medications: Currently metoclopramide, b6 TID, unisom PM,added oral prochlorperazine. Has tried most options. . -profiling normal Insufficient weight gain -EFW 01/20/2024: 1424 g, 29th percentile. Pre- Weight:258.4 BMI: 36.17 Blood type: O+ Antibody: negative CBC: PLT-176 HCT-41.6 HGB-14.5 RUB: immune VZV: immune HBsAg: negative HepC: negative RPR/AB-EIA: non-reactive HIV: negative PAP: Normal GC/CT: with pap 09/17/23- Negative HSV:Denies in self and partner Genetic testing: Mateni T 21 negative 11/12/2023 AFP negative Covid: declines; recvd Moderna in past Flu: declines FAS: 10/15 suboptimal visualization Placenta: vertex without previa Cord: 3VC FADI: normal EFW: 340g 50th %ile 11/25 follow up u/s profile suboptimal but grossly normal; all other structures normal. Declines repeat after discussion possibility of cleft lip/palate. 50gm OGCT: Profiling normal TDAP: 01/07/24 Breast Pump: 01/07/2024 3rd trimester 12.6/38.7 plt 153 GBS: Positive Delivery plan:Plan for induction at 39 weeks 03/24 Contraception:Not ready for immediate tubal ligation, but did sign tubal consents on 02/19. P: 1 T: 1 A: 0 L: 1 LMP: 06/25/2023 EDC: 03/31/2024 Height: 71 (03/17/2024 9:26:21 AM) Weight: 232 Weight (pre-): 258.4 (08/20/2023 1:18:54 PM) Gonnorhea: Neg (09/17/2023 2:26:21 PM) Chlamydia: Neg (09/17/2023 2:26:16 PM) Group B: POSITIVE (03/03/2024 11:20:00 AM) Blood Type: O+ (09/17/2023 2:57:53 PM) Last Antibody Screen: negative (09/17/2023 2:57:59 PM) Is pt sexually active? yes Gonnorrhea: Neg (09/17/2023 2:26:21 PM) Chlamydia: Neg (09/17/2023 2:26:16 PM) HIV: negative (09/17/2023 2:58:33 PM) RPR: Non Reactive (09/17/2023 11:12:00 AM) Last Pap: Normal, Satisfactory (09/17/2023 2:26:02 PM) Next pap due: 09/17/2026 (09/24/2023 2:21:31 PM) - HPI Diagnosis/Indication for NST: Other (induction at term.) Current EDU 03/31/24 Gestation 39 Weeks and 0 Days 2 Vital Signs Temperature 208.8 F H 03/24/24 09:07 Heart Rate 82 03/24/24 09:07 Respiratory Rate 18 03/24/24 09:07 Blood Pressure 118/70 03/24/24 09:07 Temperature 208.8 F H 03/24/24 09:07 Heart Rate 82 03/24/24 09:07 Respiratory Rate 18 03/24/24 09:07 Blood Pressure 118/70 03/24/24 09:07 O2 Saturation If not protocol: Oxygen Flow, liters/minute - NST Procedure Reactive for of 32 weeks gestation or more. NST tracing contains at least two heart rate accelerations that are at least 15 beats per minute above the baseline rate and lasting at least 15 seconds from onset to return to baseline within a twenty minute period. - Results and Plan Findings/Impression: reactive Plan: proceed with induction Meds/Allgy - Home Medications Home Medications: Ambulatory Orders Medication Instructions Recorded Confirmed Famotidine [Acid Hot Die Picker] 20 mg PO BID 02/04/24 03/24/24 - Allergies Allergies/Adverse Reactions: Allergies Allergy/AdvReac Type Severity Reaction Status Date / Time acetaminophen [From Vicodin] AdvReac Nausea Verified 03/24/24 11:08 hydrocodone [From Vicodin] AdvReac Nausea Verified 03/24/24 11:08 Review of Systems - Constitutional Constitutional: denies: Fever - Cardiovascular Cariovascular: denies: Irregular heart rate - Respiratory Respiratory: denies: Cough - Gastrointestinal Gastrointestinal: denies: Abdominal pain Physical - Abdominal Exam Vital Signs: Temp Pulse Resp BP Pulse Ox O2 Flow Rate 208.8 F H 82 18 118/70 03/24/24 09:07 03/24/24 09:07 03/24/24 09:07 03/24/24 09:07 Contraction Frequency (min/apart): non Contraction Intensity: positive: Mild Uterine Resting Tone: positive: Soft - Monitoring Strip Review: positive: Category I - Presentation Presentation: positive: Vertex - Vaginal Exam Membranes: positive: Membranes intact Dilation (in cm): 1 Station: positive: -3 Plan for Labor - Plan For Labor I expect patient to be DC'd or transferred within 96 hours.: Yes Plan for Labor: misoprostol for labor induction. ampicillin once in labor induction risks and benefits discussed. consents signed.
--- NOTE | 2024-03-24 20:56 | PROVIDER PROGRESS NOTE ---
Labor Progress Note - Uterine Monitoring Uterine Monitoring Mode: positive: External toco Contraction Frequency (min/apart): irreg still Contraction Intensity: positive: Moderate Uterine Resting Tone: positive: Soft - Monitoring Monitor Mode: positive: External ultrasound Heart Rate Variability: positive: Moderate (6-25 bmp) Accelerations: positive: Present, 15x15 Decelerations: positive: None Strip Review: positive: Category I - Vaginal Exam Dilation (in cm): 4-5 Effacement (%): 80 Station: -2 Cervical Position: Midposition - Labor Progress Note Labor Progress Note/Additional Text: now in labor. cervix still a bit firm. she is getting more uncomfortable. will start ampicillin. Jacadami now as she desires this. ok to monitor intermittently for now.
--- NOTE | 2024-03-24 23:18 | PROVIDER PROGRESS NOTE ---
Labor Progress Note - Uterine Monitoring Uterine Monitoring Mode: positive: External toco Contraction Frequency (min/apart): q4 Contraction Intensity: positive: Moderate Uterine Resting Tone: positive: Soft - Monitoring Monitor Mode: positive: External ultrasound Heart Rate Variability: positive: Moderate (6-25 bmp) Accelerations: positive: Present, 15x15 Decelerations: positive: None Strip Review: positive: Category I - Vaginal Exam Dilation (in cm): 6 Effacement (%): 80 Station: -2 Cervical Position: Posterior, Midposition - Labor Progress Note Labor Progress Note/Additional Text: getting more uncomfortable. AROM after discussion about plan, pain management options. Clear fluid. considering nitrous. hopefully will progress quickly now.
[2024-03-24] MEDS: AMPICILLIN 1 GM in SODIUM CHLORIDE 0.9% MINIBAG 100 ML IV SCH (23:27)
[2024-03-25] MEDS ORDERED: ROPIVACAINE 0.2% 200 MG/100 ML BAG EP ONE (00:17)
[2024-03-25] MEDS ORDERED: LIDOCAINE 2%-EPI 1:100000 20 ML MDV ONE (00:17)
[2024-03-25] MEDS ORDERED: SODIUM CHLORIDE 0.9% 10 ML VIAL IVP ONE (00:58)
[2024-03-25] MEDS ORDERED: fentaNYL 100 MCG/2 ML VIAL ONE (00:58)
[2024-03-25] MEDS ORDERED: ePHEDrine 50 MG/ML VIAL IVP PRN (01:13)
[2024-03-25] MEDS ORDERED: NALOXONE 0.4 MG/ML VIAL IVP PRN (01:13)
[2024-03-25] MEDS ORDERED: ROPIVACAINE 0.2% 200 MG/100 ML BAG EP PRN (01:13)
[2024-03-25] MEDS: OXYTOCIN/SODIUM CHLORIDE 500 ML IV PRN (01:50)
--- NOTE | 2024-03-25 02:21 | DELIVERY NOTE ---
Delivery Note - Labor Labor: positive: Other (induced with misoprostol and AROM) - Delivery Method Infant Delivery Method: positive: Spontaneous vaginal delivery - Cervical Ripening Method Cervical Ripening Method: positive: Misoprostil - Presentation Presentation: positive: Vertex - Nuchal Cord Nuchal Cord: positive: None - Anesthetic Anesthetic Type: - Amniotic Fluid Description Amniotic Fluid Description: positive: Clear - Episiotomy Type Episiotomy Type: positive: None - Laceration Laceration: positive: Periurethral (on right) - Suture Suture Type: positive: Vicryl Suture Size: positive: 4-0 - Delivery Outcome Delivery Outcome: positive: Livebirth - [place]: positive: Placed in direct skin contact with mother, Stimulated, Warmed, Colp used [place] sex: positive: Female - Cord Cord: positive: 3 vessels - Placenta Placenta: positive: Intact, Spontaneous - Estimated Blood Loss Estimated Blood Loss (in cc): 300 - Post Delivery Events Post Delivery Events: positive: No post delivery events - Delivery Comments (Free Text/Narrative) Delivery Comments (Free Text/Narrative): Patient was admitted for elective induction of labor at 39 weeks. vomiting multiple times a day all thru her and in labor. And just done. Miso x 2 and 4 cm then started Ampicillin for GBS. over next 4 hours to 6 cm. AROM clear fluid. 2.5 more hours and ready to push. had epidural placed and was working well. pushed for about 10 min. the started vomiting and this delivered her daughter in OA position over intact perineum, somewhat explosively. Baby's head and then arm came out. Baby placed on mom's abdomen. waited a few minutes to clamp and then cut the cord. Vomited again. placenta delivered spontaneously. pitocin infused with cord clamp. There was a right laceration from just lateral to the urethral to just under the clitoris. It was bleeding briskly. Pressure was held as I sewed it up with 4-0 Vicryl suture. bleeding stopped. Uterus contracted well after placenta. no complications. Estela's older daughter was in the hallway for delivery and came in just after baby was born to meet her baby sister.
[2024-03-25] MEDS ORDERED: LACTATED RINGERS 1,000 ML IV SCH (03:00)
[2024-03-25] MEDS: IBUPROFEN 600 MG TABLET PO SCH (05:09)
[2024-03-25] MEDS: DOCUSATE SODIUM 100 MG CAPSULE PO SCH (09:22)
[2024-03-25] MEDS: ACETAMINOPHEN 500 MG TABLET PO PRN (09:23)
[2024-03-25] MEDS: FAMOTIDINE 20 MG TABLET PO SCH (19:54)
--- NOTE | 2024-03-25 20:25 | PROVIDER PROGRESS NOTE ---
Subjective - Prog Note Date Prog Note Date: 03/25/24 Prog Note Time: 20:25 - Subjective Subjective: doing well. walking in halls. no concerns. Objective - Vital Signs/Intake & Output Vital Signs: Vital Signs x48h Temp Pulse Resp BP 03/25/24 17:50 98.8 F 66 17 97/63 03/25/24 13:04 68 17 119/49 L Intake & Output: Intake & Output 03/22/24 03/23/24 03/24/24 03/25/24 23:59 23:59 23:59 23:59 Intake Total 100 500 Output Total 2 1100 Balance 98 -600 - Lab Results Fish Bones: 03/24/24 11:02 Assessment/Plan - Problem List (1) Vaginal delivery Impression: doing well. routine pp care.
[2024-03-26 08:29] VITALS: BP 122/63; O2SAT 98
--- NOTE | 2024-03-26 08:57 | DISCHARGE SUMMARY ---
Discharge Summary Admit Date: 03/24/24 Discharge Date: 03/26/24 Discharging Provider: Horacio Birch MD Code Status: Attempt Resuscitation Condition at Discharge: Good Discharge Disposition: 01 Home, Self Care - DIAGNOSES Admission Diagnoses: SIUP Induction of labor - HOSPITAL COURSE Hospital Course: Patient presented for induction of labor. She had uncomplicated vaginal delivery and course. - ALLERGIES Allergies/Adverse Reactions: Allergies Allergy/AdvReac Type Severity Reaction Status Date / Time acetaminophen [From Vicodin] AdvReac Nausea Verified 03/24/24 11:08 hydrocodone [From Vicodin] AdvReac Nausea Verified 03/24/24 11:08 - MEDICATIONS Home Medications: Ambulatory Orders Medication Instructions Recorded Confirmed Famotidine [Acid [employer]] 20 mg PO BID 02/04/24 03/24/24 - PHYSICAL EXAM AT DISCHARGE General Appearance: positive: No acute distress Respiratory: positive: No respiratory distress Abdomen: positive: Non-tender Extremities: positive: Non-tender, No pedal edema - LABS Result Diagrams: 03/26/24 06:51 - FOLLOW UP Follow Up[facility]
--- NOTE | 2024-03-26 11:50 | Labor Flowsheet ---
Labor Flowsheet Datetime Report Generated by CPN: 03/26/2024 11:50 Datetime: 03/26/2024 08:06 VITAL SIGNS NBP Sys/Tiara/Mean (mmHg): 122 : 63 : 77 Pulse: 63 Datetime: 03/25/2024 04:00 Respirations: 16 SpO2 (%): 99 Temperature (C): 37.0 Temperature Route: Oral Bedside Blood Glucose: 0 Datetime: 03/25/2024 03:23 PAIN Pain Scale: 0 Datetime: 03/25/2024 02:22 Epidural Procedure Other: Cath Removed; Cath Intact Anesthesia Level Check: T10- Umbilicus Datetime: 03/25/2024 01:47 Stage of : Recovery Datetime: 03/25/2024 01:45 FHR Baseline Rate : 125 FHR Baseline Changes: No Baseline Change Accelerations: 15X15 Datetime: 03/25/2024 01:40 UTERINE ACTIVITY Monitor Mode: Palpation Frequency (min): 1-3 Quality: Strong Duration (sec): 20-50 ASSESSMENT A Monitor Mode: External US Variability: Moderate 6-25 bpm Decelerations: Early Datetime: 03/25/2024 01:35 LaborFlag: Labor Datetime: 03/25/2024 01:30 VAGINAL EXAM Dilatation (cm): 10.0 Datetime: 03/25/2024 01:29 Pattern: Normal: <= 5 Contractions in 10 Minutes Resting Tone (Palpate): Relaxed Datetime: 03/25/2024 01:27 PATIENT CARE IV/Blood Work: IV Bolus Started Datetime: 03/25/2024 01:00 Effacement (%): 100 Station: 1 Amniotic Fluid Color: Clear Amniotic Fluid Amount: Small Datetime: 03/25/2024 00:45 Epidural Procedure: Test Dose Datetime: 03/25/2024 00:40 Anesthesia Interview: E Epidural Positioning: Sitting Datetime: 03/25/2024 00:13 Anesthesia Comments: anesthesia notified to come in Datetime: 03/25/2024 00:12 Exam by: mk Datetime: 03/25/2024 00:11 COMMUNICATION Communication: Call/Page Placed to Provider Provider Notified (Name): MERRY [employer] Reyna Notification Reason: Status Update; Labor Status; Membrane Status; Uterine Activity; Pain; Patient Request Communication Comments: Pt requesting epidural Datetime: 03/25/2024 00:03 Category: Category I Datetime: 03/24/2024 23:39 ANESTHESIA Anesthesia Plans: Other Datetime: 03/24/2024 23:34 TEACHING Instructional Method: Demo; Verbal; Patient Instructed; Verbalized Understanding Unit Routine: Medications Pain Management: PRN Medications; Comfort Measures Datetime: 03/24/2024 23:30 MEDICATIONS Antibiotics: Ampicillin IV 1 Gm Datetime: 03/24/2024 23:10 Vaginal Bleeding: None Cervix, Consistency: Soft Cervix, Position: Midposition Datetime: 03/24/2024 23:09 Membrane Status: Ruptured Membranes Rupture Method: Artificial Datetime: 03/24/2024 22:38 Plan of Care: Plan of Care Discussed Nurse Giving Report: MKnudsen Datetime: 03/24/2024 22:01 Pain Location: Abdomen; Back Datetime: 03/24/2024 21:46 Comfort Measures: Family Support Datetime: 03/24/2024 21:20 Pain Presence: Intermittent Pain Type: Cramping Pain Relief Measures: Comfort Measures Datetime: 03/24/2024 20:15 MATERNAL ASSESSMENT Level of Consciousness: Alert Datetime: 03/24/2024 19:16 Patient Care Comments: Patient off monitor per OK Dr. Michaels, desires to get in jaccuzzi tub with je ts. Datetime: 03/24/2024 19:00 Monitor Interventions for UA: [place] Adjusted Monitor Interventions for FHR: Ultrasound Adjusted Oxygen Method: Room Air Datetime: 03/24/2024 17:30 Comments: broken tracing due to maternal movement Datetime: 03/24/2024 12:15 Membranes Ruptured Date/Time: 03/24/2024 23:09 Cervical Ripening Agents: Cytotec @
== END 2024-03-26 11:49 | disposition home or self-care (01) | DRG 807 ==
LOC: WFO 09:02 → FBP 09:03 → WFO 09:09 → FBP 09:10
PROVIDERS: ADMIT Obstetrics & Gynecology; ATTEND Obstetrics & Gynecology
PROC: 10907ZC Drainage of Amniotic Fluid, Therapeutic from Products of Conception, Via Natural or Artificial Opening (ICD-10-PCS; 2024-03-24)
PROC: 3E0DXGC Introduction of Other Therapeutic Substance into Mouth and Pharynx, External Approach (ICD-10-PCS; 2024-03-24)
PROC: 0UQMXZZ Repair Vulva, External Approach (ICD-10-PCS; principal; 2024-03-25)
PROC: 10E0XZZ Delivery of Products of Conception, External Approach (ICD-10-PCS; 2024-03-25)
DX: O71.82 Other specified trauma to perineum and vulva (principal); Z37.0 Single live birth; O99.824 Streptococcus B carrier state complicating childbirth; O99.214 Obesity complicating childbirth; Z3A.39 39 weeks gestation of pregnancy
CPT/HCPCS: 36415; 59409; 85018; 85025; 86850; 86900; 86901; A9270; J7120